=== PATIENT | male | born 1925 | race Two or more races ===

== ENCOUNTER 2016-06-14 20:01 | Inpatient (IN) | payer MEDICARE, MEDICAID ==
[2016-06-14 21:33] LABS: BASO # 0.1 K/uL (0.0-0.2); BASO % 0.5 % (0.0-2.0); EOS # 0.2 K/uL (0.0-0.7); EOS % 2.1 % (0.0-4.0); HEMATOCRIT 32.4 % (35.0-51.0); LYMPH # 2.9 K/uL (1.0-4.3); LYMPH % 30.2 % (20.0-40.0); MEAN CELL VOLUME 88.7 fl (80.0-94.0); MEAN CORPUSCULAR HEMOGLOBIN 30.3 pg (27.0-31.0); MEAN CORPUSCULAR HGB CONC 34.2 g/dL (33.0-37.0); MEAN PLATELET VOLUME 7.6 fl (7.2-11.7); MONO # 0.6 K/uL (0.0-0.8); MONO % 5.9 % (0.0-10.0); NEUT # 5.8 K/uL (1.8-7.0); NEUT % 61.3 % (50.0-75.0); NRBC % 0.1 % (0.0-0.0); RED CELL DISTRIBUTION WIDTH 13.4 % (11.5-14.5); WHITE BLOOD COUNT 9.5 K/uL (4.8-10.8)
--- NOTE | 2016-06-14 21:44 | ED PDOC ---
HPI: Altered Mental Status Time Seen by Provider: 06/14/16 20:20 Chief Complaint (Nursing): Altered Mental Status Chief Complaint (Provider): Altered Mental Status History Per: Patient History/Exam Limitations: Clinical Condition (dementia) Onset/Duration Of Symptoms: Days ("since yesterday") Onset Of Symptoms: Cannot Confirm Onset Current Symptoms Are (Timing): Still Present Description Of Symptoms: Other (agitated) Usual Baseline: Unknown Exacerbating Factor(s): Unknown Severity: Moderate Associated Symptoms: Agitated Additional Complaint(s): Donavon Adan is an 89 year old male, with a past medical history of dementia, who presents to the emergency department due to agitation with his half-way , that the patient has been experiencing since yesterday. Patient states that he does not know where he is and was put in restraints due to being violent, and increasing agitation makes him a harm to himself and ER staff.He became aggresive toward staff upon arrival in the ER HPI is limited due to patient's clinical history of dementia. PMD: Dr. Son Past Medical History Reviewed: Historical Data, Nursing Documentation, Vital Signs Vital Signs: Last Vital Signs Temp 98 F 06/14/16 20:05 Pulse 73 06/14/16 21:30 Resp 18 06/14/16 21:30 BP 139/77 06/14/16 21:30 Pulse Ox 100 06/14/16 21:30 - Medical History PMH: Dementia, GERD, HTN, Hypothyroidism - Surgical History Surgical History: No Surg Hx - Family History Family History: States: No Known Family Hx - Living Arrangements Living Arrangements: Group Home/Assist Lvng - Social History Current smoker - smoking cessation education provided: No Ex-Smoker (has not smoked in the last 12 months): No Alcohol: None Drugs: Denies - Home Medications Home Medications: Ambulatory Orders Medication Instructions Recorded Acetaminophen [Tylenol 325mg tab] 650 mg PO Q4 PRN 06/15/16 Acetaminophen [Tylenol 325mg tab] 650 mg PO Q4 PRN 06/15/16 Atorvastatin [Lipitor] 20 mg PO HS 06/15/16 Bisacodyl [Dulcolax] 10 mg NC DAILY PRN 06/15/16 Calcium Carbonate/Vitamin D3 1 tab PO DAILY 06/15/16 [Caltrate 600 + D Soft Chew Tab] Donepezil [Aricept] 10 mg PO HS 06/15/16 Guaifenesin [Pediatric Cough-Cold] 10 ml PO Q8 PRN 06/15/16 Isoniazid [Niazid] 300 mg PO DAILY 06/15/16 Levothyroxine [Synthroid] 75 mcg PO DAILY 06/15/16 Losartan Potassium [Losartan 25 mg PO DAILY 06/15/16 Potassium] Magnesium Hydroxide [Milk Of 30 ml PO HS PRN 06/15/16 Magnesia] Memantine HCl [Memantine HCl] 19 mg PO DAILY 06/15/16 - Allergies Allergies/Adverse Reactions: Allergies Allergy/AdvReac Type Severity Reaction Status Date / Time No Known Allergies Allergy Verified 06/14/16 20:05 Review of Systems Review Of Systems: ROS cannot be obtained secondary to pt's inabilty to answer questions. (ROS is limited due to patient's clinical history of dementia) Neurological: Positive for: Confusion, Altered Mental Status, Other (agitation) Physical Exam - Reviewed Nursing Documentation Reviewed: Yes Vital Signs Reviewed: Yes - Physical Exam Appears: Positive for: Non-toxic, No Acute Distress Head Exam: Positive for: ATRAUMATIC, NORMOCEPHALIC Skin: Positive for: Normal Color, Warm, Dry Cardiovascular/Chest: Positive for: Regular Rate, Rhythm. Negative for: Murmur Respiratory: Positive for: Normal Breath Sounds. Negative for: Respiratory Distress Gastrointestinal/Abdominal: Positive for: Normal Exam, Soft. Negative for: Tenderness Extremity: Positive for: Normal ROM. Negative for: Tenderness Neurologic/Psych: Positive for: Alert, Other (unable to perform full neurological exam due to pt clinical state). Negative for: Oriented - Laboratory Results Result Diagrams: 06/14/16 21:20 06/16/16 06:45 - ECG O2 Sat by Pulse Oximetry: 100 (RA) Pulse Ox Interpretation: Normal Medical Decision Making Medical Decision Makin:29 Initial Impression: Psychiatric evaluation, pending medical clearance for crisis eval. Initial Plan: * CT Head w/o Contrast * Alcohol Serum * CBC * CMP * UA * Urine Drug Screen * Urine Culture * Acetaminophen * Salicylate * Ativan 1 mg IVP * Crisis Evaluation * Restraints: Violent or Harm to Self/Others 20:29 Patient presents a danger to both himself and emergency department staff due to aggressive behavior. Will place patient into 4 point restraints and administer Ativan 1 mg IVP for relief of acute agitation. 21:39 Provider tried to remove restraints, but patient got too agitated. 22:21 Restraints were removed from the patient as pt demonstrated ability to stay calm 0050: Patient is medically cleared for psych eval. Awaiting crisis evaluation. 0440: Patient evaluated by crisis team and cleared for admission, however patient's daughter needs to come to ED and sign and she will not be here until 8 AM. Patient s/o to Dr. Alexander at 0700 pending daughter signing paperwork at 8 AM. Scribe Attestation: Documented by Earl Bhandari, acting as a scribe for Juanito Arriaza MD. Provider Scribe Attestation: All medical record entries made by the Scribe were at my direction and personally dictated by me. I have reviewed the chart and agree that the record accurately reflects my personal performance of the history, physical exam, medical decision making, and the department course for this patient. I have also personally directed, reviewed, and agree with the discharge instructions and disposition. ED OBSERVATION Date of observation admission: 06/15/16 Time of observation admission: 00:00 - Observation admission statement Patient is being placed in observation because:: crisis eval - Progress Note Progress Note: 0200: Patient resting comfortably in no distress. 0400: Patient resting comfortably in no distress. Disposition - Clinical Impression Clinical Impression: Alzheimer's dementia - Patient ED Disposition Is Patient to be Admitted: Transfer of Care - Disposition Disposition: Transfer of Care Disposition Time: 07:00 Condition: FAIR Patient Signed Over To: Eric Alexander Handoff Comments: pending daughter signing paperwork at 8 AM
[2016-06-14 21:48] LABS: ALB/GLOB RATIO 1.4 (1.0-2.1); ALCOHOL SERUM < 10 mg/dl (0-10); ALKALINE PHOSPHATASE 84 U/L (38-126); ALT/SGPT 34 U/L (21-72); AST/SGOT 40 U/L (17-59); BILIRUBIN,TOTAL 1.1 mg/dl (0.2-1.3); BLOOD UREA NITROGEN 25 mg/dl (9-20); CALCIUM 9.7 mg/dL (8.4-10.2); CARBON DIOXIDE 22 mmol/L (22-30); CHLORIDE 109 mmol/L (98-107); GFR AFRICAN-AMERICAN > 60; GLUCOSE,RANDOM 101 mg/dL (75-110); POTASSIUM 3.4 MMOL/L (3.6-5.0); SODIUM 144 mmol/l (132-148); TOTAL PROTEIN 7.1 G/DL (6.3-8.2)
--- NOTE | 2016-06-14 23:30 | CT ---
EXAM: CT Head Without Intravenous Contrast CLINICAL HISTORY: 89 years old, male; Signs and symptoms; Altered mental status/memory loss; Additional info: Agitation TECHNIQUE: Axial computed tomography images of the head/brain without intravenous contrast. This CT exam was performed using one or more of the following dose reduction techniques: automated exposure control, adjustment of the mA and/or kV according to patient size, and/or use of iterative reconstruction technique. Coronal and sagittal reformatted images were created and reviewed. COMPARISON: No relevant prior studies available. FINDINGS: Brain: There is moderate prominence of ventricles and sulci, compatible with moderate atrophy. There is moderate diminished density of the white matter bilaterally, consistent with moderate microangiopathy. There is no evidence of intracranial hemorrhage. No evidence of acute territorial infarction. No edema. Ventricles: See above. Bones/joints: Unremarkable. No acute fracture. Soft tissues: Unremarkable. Sinuses: There is mucosal thickening of both maxillary sinuses. Mild mucosal thickening of multiple ethmoid air cells. Mastoid air cells: Unremarkable as visualized. No mastoid effusion. IMPRESSION: 1. No evidence for acute intracranial abnormality or displaced calvarial fracture. 2. Additional incidental and/or chronic findings as described.
[2016-06-14 23:57] LABS: RBC URINE 3 /hpf (0-3); URINE BILIRUBIN NEGATIVE (NEGATIVE); URINE BLOOD NEGATIVE (NEGATIVE); URINE COLOR YELLOW (YELLOW); URINE GLUCOSE (UA) NEG (Normal); URINE KETONE TRACE mg/dL (NEGATIVE); URINE LEUKOCYTE ESTERASE NEG Leu/uL (Negative); URINE PROTEIN NEGATIVE (NEGATIVE); URINE UROBILINOGEN 0.2-1.0 mg/dL (0.2-1.0); WBC URINE 2 /hpf (0-5)
--- NOTE | 2016-06-15 07:09 | ED PDOC ---
- Laboratory Results Result Diagrams: 06/14/16 21:20 06/14/16 21:20 - ECG O2 Sat by Pulse Oximetry: 100 (RA) Medical Decision Making Medical Decision Making: Time: 0700 Patient signed out by Dr. Arriaza pending picker tender helper from ED by daughter at 0800 Scribe Attestation: Documented by Ana Rosa Diana acting as a scribe for Eric Alexander MD MD Scribe Attestation: All medical record entries made by the Scribe were at my direction and personally dictated by me. I have reviewed the chart and agree that the record accurately reflects my personal performance of the history, physical exam, medical decision making, and the department course for this patient. I have also personally directed, reviewed, and agree with the discharge instructions and disposition. Disposition Counseled Patient/Family Regarding: Studies Performed, Diagnosis - Clinical Impression Clinical Impression: Alzheimer's dementia - POA Present On Arrival: None - Disposition Disposition: Admitted as In-Patient Disposition Time: 10:00 Condition: FAIR
--- NOTE | 2016-06-15 09:21 | CARD ---
APPROVED REPORT EKG Measurement Heart [id number] <Conclusion> Sinus rhythm with 1st degree AV block Otherwise normal ECG
--- NOTE | 2016-06-15 11:28 | RAD ---
HISTORY: Agitation. COMPARISON: No prior. FINDINGS: LUNGS: No active pulmonary disease. PLEURA: No significant pleural effusion identified, no pneumothorax apparent. CARDIOVASCULAR: No radiographic findings to suggest acute or significant cardiovascular disease. OSSEOUS STRUCTURES: No significant abnormalities. VISUALIZED UPPER ABDOMEN: Normal. OTHER FINDINGS: None. IMPRESSION: No active disease. Concordant results with the preliminary interpretation rendered by the emergency department physician procedure.
[2016-06-15] MEDS ORDERED: Magnesium Hydroxide Susp 30 ml UD PO PRN ×2 (11:29→18:54)
[2016-06-15] MEDS ORDERED: Alum-Mag Hydrox-Simethicone Susp (30 mL) PO PRN (11:29)
[2016-06-15] MEDS ORDERED: Bismuth Subsalicylate 262 mg/15 ml Sus (240 ml) PO PRN (11:29)
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
[2016-06-15 16:55] VITALS: BMI 31.0
--- NOTE | 2016-06-15 18:41 | CP.PCM.CON ---
History of Present Illness - History of Present Illness History of Present Illness: 89 y/o male with PMH Dementia with behavioral problems, HTN , dyslpidemia , hypothyroidismm, NH resident was sent to ER for evaluation of agitation and aggressive behaviour. Medicine consult called as per protocol.Patient is demented so can not provided any history. History obtained from chart and staff. At present he appears calm in NAD . He was given 1 mg Ativan in ER for agitation NKDA;NOne PMH; Dementia witgh behavioral problems Medications;LOSARTAN, MEMANTINE, ARICEPT, IZONIAZID, ATORVASTATIN Surgery ; Unknown Family history ; unknown Social history ; NH resident ROS ; patient can not provide any ROS due to advanced dementia. There is no family member available Review of Systems - Review of Systems Systems not reviewed;Unavailable: Dementia Past Patient History - Past Social History Alcohol: None Drugs: Denies - CARDIAC Hx Cardiac Disorders: Yes Hx Hypertension: Yes - PULMONARY Hx Chronic Obstructive Pulmonary Disease (COPD): Yes Hx Tuberculosis: No - NEUROLOGICAL Hx Neurological Disorder: Yes Hx Dementia: Yes - HEENT Hx HEENT Problems: Yes Other/Comment: hard of hearing - RENAL Hx Chronic Kidney Disease: No - ENDOCRINE/METABOLIC Hx Endocrine Disorders: Yes Hx Hypothyroidism: Yes - HEMATOLOGICAL/ONCOLOGICAL Hx Blood Disorders: No Hx Cancer: No Hx Human Immunodeficiency Virus (HIV): No - INTEGUMENTARY Hx Dermatological Problems: No - MUSCULOSKELETAL/RHEUMATOLOGICAL Hx Falls: No - GASTROINTESTINAL Hx Gastroesophageal Reflux: Yes - GENITOURINARY/GYNECOLOGICAL Hx Genitourinary Disorders: No Hx Sexually Transmitted Disorders: No - PSYCHIATRIC Hx Substance Use: No - ANESTHESIA Hx Anesthesia: Yes Hx Anesthesia Reactions: No Meds Allergies/Adverse Reactions: Allergies Allergy/AdvReac Type Severity Reaction Status Date / Time No Known Allergies Allergy Verified 06/14/16 20:05 - Medications Medications: Current Medications Acetaminophen (Tylenol 325mg Tab) 650 mg PO Q4 PRN PRN Reason: Pain, moderate (4-7) Al Hydrox/Mg Hydrox/Simethicone (Maalox Plus 30 Ml) 30 ml PO Q4 PRN PRN Reason: Dyspepsia Bismuth Subsalicylate (Pepto-Bismol) 524 mg PO Q4 PRN PRN Reason: Diarrhea Divalproex Sodium (Depakote Sprinkles) 125 mg PO BID STUART Donepezil HCl (Aricept) 10 mg PO HS STUART Lorazepam (Ativan) 0.5 mg IM Q8 PRN PRN Reason: Agitation Magnesium Hydroxide (Milk Of Magnesia) 30 ml PO HS PRN PRN Reason: Constipation Memantine (Namenda) 10 mg PO DAILY STUART Quetiapine Fumarate (Seroquel) 25 mg PO Q6 PRN PRN Reason: Agitation Physical Exam - Constitutional Appears: Non-toxic, No Acute Distress, Other (demented, drowsy ) - Head Exam Head Exam: ATRAUMATIC, NORMAL INSPECTION, NORMOCEPHALIC - Eye Exam Eye Exam: EOMI, Normal appearance, PERRL Pupil Exam: NORMAL ACCOMODATION - ENT Exam ENT Exam: Normal Exam - Neck Exam Neck exam: Positive for: Normal Inspection - Respiratory Exam Respiratory Exam: Clear to Auscultation Bilateral, NORMAL BREATHING PATTERN. absent: Rales, Rhonchi, Wheezes - Cardiovascular Exam Cardiovascular Exam: REGULAR RHYTHM, RRR, +S1, +S2. absent: JVD - GI/Abdominal Exam GI & Abdominal Exam: Normal Bowel Sounds, Soft. absent: Distended, Guarding, Rebound, Tenderness - Rectal Exam Rectal Exam: Deferred - Extremities Exam Extremities exam: Positive for: normal capillary refill, normal inspection, pedal pulses present. Negative for: calf tenderness, pedal edema - Back Exam Back exam: NORMAL INSPECTION - Neurological Exam Neurological exam: CN II-XII Intact Additional comments: awake, alert not oriented demented - Psychiatric Exam Psychiatric exam: Flat Affect Additional comments: lethargic - Skin Skin Exam: Dry, Intact, Normal Color, Warm Results - Vital Signs Recent Vital Signs: Last Vital Signs Temp 97.5 F L 06/15/16 15:57 Pulse 59 L 06/15/16 15:57 Resp 19 06/15/16 15:57 BP 143/69 06/15/16 15:57 Pulse Ox 95 06/15/16 10:47 - Labs Result Diagrams: 06/14/16 21:20 06/14/16 21:20 - Imaging and Cardiology CT scan - head Additional comment: no acute pathology Chest x-ray Additional comment: no active disease Assessment & Plan - Assessment and Plan (Free Text) Assessment: 89 y/o male with PMH Dementia with behavioral problems, HTN , dyslpidemia , hypothyroidismm, NH resident was sent to ER for evaluation of agitation and aggressive behaviour. Medicine consult called as per protocol.Patient is demented so can not provided any history. History obtained from chart and staff. At present he appears calm in NAD . He was given 1 mg Ativan in ER for agitation 1.Dementia with behavioral problems Check TSH, RPR, CXR showing no active disease, UA - wnl Check with NH if any new medications ( especially Izoniazid ) were started Management as per psych 2.Hypertension controlled resume home meds 3. Dyslipidemia on statin 4. 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 Will need to verify with NH when this medication was started since some patients on Izoniazid may experience depression , aggresion and psychosis 6 DVT prophylaxis SCD lOVENOX
[2016-06-16 07:29] LABS: BLOOD UREA NITROGEN 23 mg/dl (9-20); CALCIUM 9.1 mg/dL (8.4-10.2); CARBON DIOXIDE 27 mmol/L (22-30); CHLORIDE 109 mmol/L (98-107); GFR AFRICAN-AMERICAN > 60; GLUCOSE,RANDOM 94 mg/dL (75-110); POTASSIUM 3.8 MMOL/L (3.6-5.0); SODIUM 145 mmol/l (132-148)
[2016-06-16 08:11] LABS: T4 8.85 ug/dl (5.5-11.0)
[2016-06-16 08:25] LABS: THYROID STIMULATING HORMONE 3.39 mIU/ML (0.46-4.68)
[2016-06-16] MEDS: Divalproex 125 mg Sprinkle Capsule PO SCH ×2 (08:33→16:43)
[2016-06-16] MEDS: Levothyroxine 75 MCG TAB PO SCH (08:34)
[2016-06-16] MEDS: Calcium-Vit D 500 mg-200 Units Tab UD PO SCH (08:35)
[2016-06-16] MEDS: Enoxaparin 40 mg Syringe SC SCH (08:36)
--- NOTE | 2016-06-16 09:44 | PCM.PYCHPN ---
Psychiatric Progress Note - Psychiatric Progress Note Patient seen today, length of contact: Patient evaluated, case discussed with team, chart reviewed Patient Chief Complaint: "What's up with you?" Problems Identified/Issues Discussed: Patient A + O x 1, which is likely his baseline due to dementia. He is calm/ cooperative and slept for many hours yesterday. He denies acute complaints and has not been violent/threatening or aggressive. Medication Change: No Medical Record Reviewed: Yes Mental Status Examination - Cognitive Function Orientation: Person Memory: Impaired Attention: Poor Concentration: Poor Association: Loose Fund of Knowledge: Poor Decription of patient's judgement and insights: I/J limited by dementia - Mood Mood: Neutral - Affect Affect: Broad - Speech Speech: Slurred (Mumbles at times) - Formal Thought Process Formal Thought Process: Loosening of associations Psychotic Thoughts and Behaviors: Denies AH/VH/paranoia - Suicidal Ideation Suicidal Ideation: No - Homicidal Ideation Homicidal Ideation: No Goal/Treatment Plan - Goal/Treatment Plan Need for Continued Stay: Remain at risks for inpatient hospitalization, Severe functional impairment Progress Toward Problem(s) and Goals/Treatment Plan: -Continue Depakote 125 mg PO BID -Medicine consult appreciated -Dietitian consult appreciated -Continue 1:1 for safety/ unpredictable behavior, will consider discontinuing if patient continues to improve clinically -Individual and group therapy -Activity as tolerated Estimated Date of D/C: 06/21/16 - Smoking Cessation Smoking Cessation Initiated: No Reason for not providing: Not indicated
[2016-06-17] MEDS: Divalproex 125 mg Sprinkle Capsule PO SCH ×3 (10:31→17:55)
[2016-06-17] MEDS: Levothyroxine 75 MCG TAB PO SCH (10:31)
--- NOTE | 2016-06-17 10:31 | PCM.PYCHPN ---
Psychiatric Progress Note - Psychiatric Progress Note Patient seen today, length of contact: Patient evaluated, case discussed with team, chart reviewed Patient Chief Complaint: No acute complaints Problems Identified/Issues Discussed: Patient A + O x 1, which is his baseline due to dementia. No significant events overnight. He is calm and cooperative. He does wander around the unit and has poor insight, but this is all chronic due to his chronic dementia. He denies acute complaints and has not been violent/threatening or aggressive. Medication Change: No Medical Record Reviewed: Yes Mental Status Examination - Cognitive Function Orientation: Person Memory: Impaired Attention: Poor Concentration: Poor Association: Loose Fund of Knowledge: Poor Decription of patient's judgement and insights: I/J limited by dementia - Mood Mood: Neutral - Affect Affect: Broad - Speech Speech: Slurred (Mumbles at times) - Formal Thought Process Formal Thought Process: Loosening of associations Psychotic Thoughts and Behaviors: Denies AH/VH/paranoia - Suicidal Ideation Suicidal Ideation: No - Homicidal Ideation Homicidal Ideation: No Goal/Treatment Plan - Goal/Treatment Plan Need for Continued Stay: Remain at risks for inpatient hospitalization, Severe functional impairment Progress Toward Problem(s) and Goals/Treatment Plan: -Continue Depakote 125 mg PO BID -Medicine consult appreciated -Dietitian consult appreciated -Continue 1:1 for safety/ unpredictable behavior, will consider discontinuing if patient continues to improve clinically -Individual and group therapy -Activity as tolerated Estimated Date of D/C: 06/21/16 - Smoking Cessation Smoking Cessation Initiated: No Reason for not providing: Not indicated
[2016-06-17] MEDS: Calcium-Vit D 500 mg-200 Units Tab UD PO SCH (10:32)
[2016-06-17] MEDS: Enoxaparin 40 mg Syringe SC SCH (10:32)
[2016-06-18] MEDS: Levothyroxine 75 MCG TAB PO SCH (08:37)
[2016-06-18] MEDS: Divalproex 125 mg Sprinkle Capsule PO SCH ×2 (08:39→21:39)
[2016-06-18] MEDS: Calcium-Vit D 500 mg-200 Units Tab UD PO SCH (08:40)
[2016-06-18] MEDS: Enoxaparin 40 mg Syringe SC SCH (08:51)
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
[2016-06-18] MEDS ORDERED: Divalproex 250 mg DR(BID formulation) PO SCH (17:00)
[2016-06-19] MEDS: Divalproex 125 mg Sprinkle Capsule PO SCH ×2 (08:35→16:52)
[2016-06-19] MEDS: Enoxaparin 40 mg Syringe SC SCH (08:35)
[2016-06-19] MEDS: Calcium-Vit D 500 mg-200 Units Tab UD PO SCH (08:36)
[2016-06-19] MEDS: Levothyroxine 75 MCG TAB PO SCH (08:36)
[2016-06-19] MEDS ORDERED: Divalproex 125 mg Sprinkle Capsule PO SCH (09:00)
--- NOTE | 2016-06-19 09:49 | PCM.PYCHPN ---
Psychiatric Progress Note - Psychiatric Progress Note Patient seen today, length of contact: Patient evaluated, case discussed with team, chart reviewed Patient Chief Complaint: No acute complaints Problems Identified/Issues Discussed: No significant events overnight. Patient was calmer in the night, but does wander around when he is awake and needs redirection. He has poor insight and is only oriented to self, but this is all chronic due to his chronic dementia. Medication Change: No Medical Record Reviewed: Yes Mental Status Examination - Cognitive Function Orientation: Person Memory: Impaired Attention: Poor Concentration: Poor Association: Loose Fund of Knowledge: Poor Decription of patient's judgement and insights: I/J limited by dementia - Mood Mood: Neutral - Affect Affect: Broad - Speech Speech: Slurred (Mumbles at times) - Formal Thought Process Formal Thought Process: Loosening of associations Psychotic Thoughts and Behaviors: Denies AH/VH/paranoia - Suicidal Ideation Suicidal Ideation: No - Homicidal Ideation Homicidal Ideation: No Goal/Treatment Plan - Goal/Treatment Plan Need for Continued Stay: Remain at risks for inpatient hospitalization, Severe functional impairment Progress Toward Problem(s) and Goals/Treatment Plan: -Continue Depakote to 250 mg PO BID -Medicine consult appreciated -Dietitian consult appreciated -Continue 1:1 for safety/ unpredictable behavior, will consider discontinuing if patient continues to improve clinically -Individual and group therapy -Activity as tolerated Estimated Date of D/C: 06/23/16
[2016-06-20] MEDS: Divalproex 125 mg Sprinkle Capsule PO SCH ×2 (12:18→17:30)
[2016-06-20] MEDS: Levothyroxine 75 MCG TAB PO SCH (12:20)
[2016-06-20] MEDS: Calcium-Vit D 500 mg-200 Units Tab UD PO SCH (12:20)
--- NOTE | 2016-06-20 15:25 | PCM.PYCHPN ---
Psychiatric Progress Note - Psychiatric Progress Note Patient seen today, length of contact: Patient evaluated, case discussed with team, chart reviewed Patient Chief Complaint: No acute complaints Problems Identified/Issues Discussed: No significant events overnight. Patient has been sleeping off and on during the day. He has been calm, without aggression or agitation. He has poor insight and is only oriented to self, but this is all chronic due to his chronic dementia. Medication Change: No Medical Record Reviewed: Yes Mental Status Examination - Cognitive Function Orientation: Person Memory: Impaired Attention: Poor Concentration: Poor Association: Loose Fund of Knowledge: Poor Decription of patient's judgement and insights: I/J limited by dementia - Mood Mood: Neutral - Affect Affect: Broad - Speech Speech: Slurred (Mumbles at times) - Formal Thought Process Formal Thought Process: Loosening of associations Psychotic Thoughts and Behaviors: Denies AH/VH/paranoia - Suicidal Ideation Suicidal Ideation: No - Homicidal Ideation Homicidal Ideation: No Goal/Treatment Plan - Goal/Treatment Plan Need for Continued Stay: Remain at risks for inpatient hospitalization, Severe functional impairment Progress Toward Problem(s) and Goals/Treatment Plan: -Continue Depakote to 250 mg PO BID; Check VPA in the morning -Medicine consult appreciated -Dietitian consult appreciated -Continue 1:1 for safety/ unpredictable behavior, will consider discontinuing if patient continues to improve clinically -Individual and group therapy -Activity as tolerated Estimated Date of D/C: 06/23/16
[2016-06-21 02:50] VITALS: O2SAT 100
[2016-06-21] MEDS: Calcium-Vit D 500 mg-200 Units Tab UD PO SCH (09:20)
[2016-06-21] MEDS: Levothyroxine 75 MCG TAB PO SCH (09:20)
[2016-06-21] MEDS: Divalproex 125 mg Sprinkle Capsule PO SCH ×2 (09:23→17:20)
--- NOTE | 2016-06-21 10:58 | PCM.PYCHPN ---
Psychiatric Progress Note - Psychiatric Progress Note Patient seen today, length of contact: Patient evaluated, case discussed with team, chart reviewed Patient Chief Complaint: No acute complaints Problems Identified/Issues Discussed: No significant events over the weekend. Patient has been calm and cooperative for several days without any significant events. He continues to be oriented x 1 as per his baseline. No adverse effects to medications reported or noted by staff. Diagnostic Results: VPA 06/21/16- 50.8 Medication Change: No Medical Record Reviewed: Yes Mental Status Examination - Cognitive Function Orientation: Person Memory: Impaired Attention: Poor Concentration: Poor Association: Loose Fund of Knowledge: Poor Decription of patient's judgement and insights: I/J limited by dementia - Mood Mood: Neutral - Affect Affect: Broad - Speech Speech: Slurred (Mumbles at times) - Formal Thought Process Formal Thought Process: Loosening of associations Psychotic Thoughts and Behaviors: Denies AH/VH/paranoia - Suicidal Ideation Suicidal Ideation: No - Homicidal Ideation Homicidal Ideation: No Goal/Treatment Plan - Goal/Treatment Plan Need for Continued Stay: Severe functional impairment Progress Toward Problem(s) and Goals/Treatment Plan: -Continue Depakote to 250 mg PO BID; VPA 06/21/16- 50.8 -Medicine consult appreciated -Dietitian consult appreciated -Discontinue 1:1 -Individual and group therapy -Activity as tolerated Estimated Date of D/C: 06/23/16 - Smoking Cessation Smoking Cessation Initiated: No Reason for not providing: Not indicated
[2016-06-22] MEDS: Levothyroxine 75 MCG TAB PO SCH (06:38)
[2016-06-22] MEDS: Divalproex 125 mg Sprinkle Capsule PO SCH ×2 (08:09→17:08)
[2016-06-22] MEDS: Calcium-Vit D 500 mg-200 Units Tab UD PO SCH (08:09)
--- NOTE | 2016-06-22 09:42 | PCM.PYCHPN ---
Psychiatric Progress Note - Psychiatric Progress Note Patient seen today, length of contact: Patient evaluated, case discussed with team, chart reviewed Patient Chief Complaint: No acute complaints Problems Identified/Issues Discussed: No significant events over the weekend or overnight. Patient has been calm and cooperative for several days without any significant events. He continues to be oriented x 1 as per his baseline. No adverse effects to medications reported or noted by staff. Diagnostic Results: VPA 06/21/16- 50.8 Medication Change: No Medical Record Reviewed: Yes Mental Status Examination - Cognitive Function Orientation: Person Memory: Impaired Attention: Poor Concentration: Poor Association: Loose Fund of Knowledge: Poor Decription of patient's judgement and insights: I/J limited by dementia - Mood Mood: Neutral - Affect Affect: Broad - Speech Speech: Slurred (Mumbles at times) - Formal Thought Process Formal Thought Process: Loosening of associations Psychotic Thoughts and Behaviors: Denies AH/VH/paranoia - Suicidal Ideation Suicidal Ideation: No - Homicidal Ideation Homicidal Ideation: No Goal/Treatment Plan - Goal/Treatment Plan Progress Toward Problem(s) and Goals/Treatment Plan: 89 yo male admitted for dementia w/ behavioral disturbances, now psychiatrically stable for referral to a correction. -Continue Depakote 250 mg PO BID; VPA 06/21/16- 50.8 -Medicine consult appreciated -Dietitian consult appreciated -Individual and group therapy -Activity as tolerated -Disposition planning Estimated Date of D/C: 06/24/16 - Smoking Cessation Smoking Cessation Initiated: No Reason for not providing: Not indicated
[2016-06-23] MEDS: Levothyroxine 75 MCG TAB PO SCH (06:15)
[2016-06-23] MEDS: Divalproex 125 mg Sprinkle Capsule PO SCH ×2 (08:46→16:42)
[2016-06-23] MEDS: Calcium-Vit D 500 mg-200 Units Tab UD PO SCH (08:47)
--- NOTE | 2016-06-23 09:34 | PCM.PYCHPN ---
Psychiatric Progress Note - Psychiatric Progress Note Patient seen today, length of contact: Patient evaluated, case discussed with team, chart reviewed Patient Chief Complaint: No acute complaints Problems Identified/Issues Discussed: No significant events overnight. Patient has been calm and cooperative for several days without any significant events. He continues to be oriented x 1 as per his baseline. No adverse effects to medications reported or noted by staff. Diagnostic Results: VPA 06/21/16- 50.8 Medication Change: No Medical Record Reviewed: Yes Mental Status Examination - Cognitive Function Orientation: Person Memory: Impaired Attention: Poor Concentration: Poor Association: Loose Fund of Knowledge: Poor Decription of patient's judgement and insights: I/J limited by dementia - Mood Mood: Neutral - Affect Affect: Broad - Speech Speech: Slurred (Mumbles at times) - Formal Thought Process Formal Thought Process: Loosening of associations Psychotic Thoughts and Behaviors: Denies AH/VH/paranoia - Suicidal Ideation Suicidal Ideation: No - Homicidal Ideation Homicidal Ideation: No Goal/Treatment Plan - Goal/Treatment Plan Need for Continued Stay: Severe functional impairment Progress Toward Problem(s) and Goals/Treatment Plan: 89 yo male admitted for dementia w/ behavioral disturbances, now psychiatrically stable for referral to a fdc. -Continue Depakote 250 mg PO BID; VPA 06/21/16- 50.8 -Medicine consult appreciated -Dietitian consult appreciated -Individual and group therapy -Activity as tolerated -Disposition planning Estimated Date of D/C: 06/25/16
[2016-06-24] MEDS: Levothyroxine 75 MCG TAB PO SCH (06:30)
[2016-06-24] MEDS ORDERED: Levothyroxine 75 MCG TAB PO ONE (06:30)
[2016-06-24] MEDS: Calcium-Vit D 500 mg-200 Units Tab UD PO SCH (09:00)
[2016-06-24] MEDS ORDERED: Divalproex 125 mg Sprinkle Capsule PO ONE ×2 (09:00→17:00)
[2016-06-24] MEDS ORDERED: Calcium-Vit D 500 mg-200 Units Tab UD PO ONE (09:00)
[2016-06-24] MEDS: Divalproex 125 mg Sprinkle Capsule PO SCH ×2 (09:00→17:00)
[2016-06-25] MEDS: Levothyroxine 75 MCG TAB PO SCH ×2 (09:22→09:23)
[2016-06-25] MEDS: Divalproex 125 mg Sprinkle Capsule PO SCH ×2 (09:27→17:40)
[2016-06-25] MEDS: Calcium-Vit D 500 mg-200 Units Tab UD PO SCH (09:30)
--- NOTE | 2016-06-25 09:32 | PCM.PYCHPN ---
Psychiatric Progress Note - Psychiatric Progress Note Patient seen today, length of contact: Patient evaluated, case discussed with team, chart reviewed Patient Chief Complaint: No acute complaints Problems Identified/Issues Discussed: *Progress note from 06/24/16 written in the paper chart because EMR was down. No significant events overnight. Patient has been calm and cooperative for a week without any significant events. He continues to be oriented x 1 as per his baseline. No adverse effects to medications reported or noted by staff. Diagnostic Results: VPA 06/21/16- 50.8 Medication Change: No Medical Record Reviewed: Yes Mental Status Examination - Cognitive Function Orientation: Person Memory: Impaired Attention: Poor Concentration: Poor Association: Loose Fund of Knowledge: Poor Decription of patient's judgement and insights: I/J limited by dementia - Mood Mood: Neutral - Affect Affect: Broad - Speech Speech: Appropriate, Slurred (Mumbles at times) - Formal Thought Process Formal Thought Process: Loosening of associations Psychotic Thoughts and Behaviors: Denies AH/VH/paranoia - Suicidal Ideation Suicidal Ideation: No - Homicidal Ideation Homicidal Ideation: No Goal/Treatment Plan - Goal/Treatment Plan Need for Continued Stay: Severe functional impairment Progress Toward Problem(s) and Goals/Treatment Plan: 89 yo male admitted for dementia w/ behavioral disturbances, now psychiatrically stable for referral to a correction. -Continue Depakote 250 mg PO BID; VPA 06/21/16- 50.8 -Medicine consult appreciated -Dietitian consult appreciated -Individual and group therapy -Activity as tolerated -Disposition planning, awaiting correction placement Estimated Date of D/C: 06/29/16
[2016-06-26] MEDS: Levothyroxine 75 MCG TAB PO SCH (06:32)
[2016-06-26] MEDS: Divalproex 125 mg Sprinkle Capsule PO SCH ×2 (08:33→16:11)
[2016-06-26] MEDS: Calcium-Vit D 500 mg-200 Units Tab UD PO SCH (08:35)
--- NOTE | 2016-06-26 13:23 | PCM.PYCHPN ---
Psychiatric Progress Note - Psychiatric Progress Note Patient seen today, length of contact: discussed with RN Patient Chief Complaint: no complaints Problems Identified/Issues Discussed: pt without any significant behavioral events. no evidence of medication side effects. Medication Change: No Medical Record Reviewed: Yes Mental Status Examination - Cognitive Function Orientation: Person Memory: Impaired Attention: Poor Concentration: Poor Association: Loose Fund of Knowledge: Poor Decription of patient's judgement and insights: poor - Mood Mood: Neutral - Affect Affect: Broad - Speech Speech: Appropriate, Slurred (Mumbles at times) - Formal Thought Process Formal Thought Process: Loosening of associations - Suicidal Ideation Suicidal Ideation: No - Homicidal Ideation Homicidal Ideation: No Goal/Treatment Plan - Goal/Treatment Plan Need for Continued Stay: Severe functional impairment Progress Toward Problem(s) and Goals/Treatment Plan: alzheimers disease continue current treatment per primary team Estimated Date of D/C: 06/29/16
[2016-06-27] MEDS: Levothyroxine 75 MCG TAB PO SCH (06:10)
[2016-06-27] MEDS: Calcium-Vit D 500 mg-200 Units Tab UD PO SCH (09:50)
[2016-06-27] MEDS: Divalproex 125 mg Sprinkle Capsule PO SCH ×2 (09:51→16:29)
--- NOTE | 2016-06-27 12:47 | PCM.PYCHPN ---
Psychiatric Progress Note - Psychiatric Progress Note Patient seen today, length of contact: discussed with RN Patient Chief Complaint: no complaints Problems Identified/Issues Discussed: pt without any significant behavioral events. no evidence of medication side effects. sitting calming in hallway, cooperative. Medication Change: No Medical Record Reviewed: Yes Mental Status Examination - Cognitive Function Orientation: Person Memory: Impaired Attention: Poor Concentration: Poor Association: Loose Fund of Knowledge: Poor Decription of patient's judgement and insights: poor - Mood Mood: Neutral - Affect Affect: Broad - Speech Speech: Appropriate, Slurred (Mumbles at times) - Formal Thought Process Formal Thought Process: Loosening of associations - Suicidal Ideation Suicidal Ideation: No - Homicidal Ideation Homicidal Ideation: No Goal/Treatment Plan - Goal/Treatment Plan Need for Continued Stay: Severe functional impairment Progress Toward Problem(s) and Goals/Treatment Plan: alzheimers disease continue current treatment per primary team Estimated Date of D/C: 06/29/16
[2016-06-28] MEDS: Levothyroxine 75 MCG TAB PO SCH (06:46)
[2016-06-28] MEDS: Divalproex 125 mg Sprinkle Capsule PO SCH ×2 (10:09→16:26)
[2016-06-28] MEDS: Calcium-Vit D 500 mg-200 Units Tab UD PO SCH (10:10)
--- NOTE | 2016-06-28 10:35 | PCM.PYCHPN ---
Psychiatric Progress Note - Psychiatric Progress Note Patient seen today, length of contact: Patient evaluated, case discussed with team, chart reviewed Patient Chief Complaint: No acute complaints Problems Identified/Issues Discussed: No significant events over the weekend. Patient has been calm and cooperative for over a week without any significant events. He continues to be oriented x 1 as per his baseline. No adverse effects to medications reported or noted by staff. Diagnostic Results: VPA 06/21/16- 50.8 Medication Change: No Medical Record Reviewed: Yes Mental Status Examination - Cognitive Function Orientation: Person Memory: Impaired Attention: Poor Concentration: Poor Association: Loose Fund of Knowledge: Poor Decription of patient's judgement and insights: Poor I/J due to chronic dementia - Mood Mood: Neutral - Affect Affect: Broad - Speech Speech: Appropriate, Slurred (Mumbles at times) - Formal Thought Process Formal Thought Process: Loosening of associations Psychotic Thoughts and Behaviors: No AH/VH/paranoia - Suicidal Ideation Suicidal Ideation: No - Homicidal Ideation Homicidal Ideation: No Goal/Treatment Plan - Goal/Treatment Plan Need for Continued Stay: Severe functional impairment Progress Toward Problem(s) and Goals/Treatment Plan: 89 yo male admitted for dementia w/ behavioral disturbances, now psychiatrically stable for referral to a penitentiary. -Continue Depakote 250 mg PO BID; VPA 06/21/16- 50.8 -Medicine consult appreciated -Dietitian consult appreciated -Individual and group therapy -Activity as tolerated -Disposition planning, awaiting penitentiary placement Estimated Date of D/C: 06/29/16
[2016-06-29] MEDS: Divalproex 125 mg Sprinkle Capsule PO SCH ×2 (09:31→17:36)
[2016-06-29] MEDS: Calcium-Vit D 500 mg-200 Units Tab UD PO SCH (09:31)
--- NOTE | 2016-06-29 09:56 | PCM.PYCHPN ---
Psychiatric Progress Note - Psychiatric Progress Note Patient seen today, length of contact: Patient evaluated, case discussed with team, chart reviewed Patient Chief Complaint: No acute complaints Problems Identified/Issues Discussed: No significant events overnight. Patient has been calm and cooperative, without any significant events. He continues to be oriented x 1 as per his baseline. No adverse effects to medications reported or noted by staff. No acute mood complaints or disturbances. Diagnostic Results: VPA 06/21/16- 50.8 Medication Change: No Medical Record Reviewed: Yes Mental Status Examination - Cognitive Function Orientation: Person Memory: Impaired Attention: Poor Concentration: Poor Association: Loose Fund of Knowledge: Poor Decription of patient's judgement and insights: Poor I/J due to chronic dementia - Mood Mood: Neutral - Affect Affect: Broad - Speech Speech: Appropriate, Slurred (Mumbles at times) - Formal Thought Process Formal Thought Process: Loosening of associations Psychotic Thoughts and Behaviors: No AH/VH/paranoia - Suicidal Ideation Suicidal Ideation: No - Homicidal Ideation Homicidal Ideation: No Goal/Treatment Plan - Goal/Treatment Plan Need for Continued Stay: Severe functional impairment Progress Toward Problem(s) and Goals/Treatment Plan: 89 yo male admitted for dementia w/ behavioral disturbances, now psychiatrically stable for referral to a long-term. -Continue Depakote 250 mg PO BID; VPA 06/21/16- 50.8 -Medicine consult appreciated -Dietitian consult appreciated -Individual and group therapy -Activity as tolerated -Disposition planning, awaiting long-term placement Estimated Date of D/C: 07/05/16
[2016-06-30] MEDS: Levothyroxine 75 MCG TAB PO SCH (05:40)
[2016-06-30] MEDS: Divalproex 125 mg Sprinkle Capsule PO SCH ×2 (08:14→16:16)
[2016-06-30] MEDS: Calcium-Vit D 500 mg-200 Units Tab UD PO SCH (08:16)
--- NOTE | 2016-06-30 08:47 | PCM.PYCHPN ---
Psychiatric Progress Note - Psychiatric Progress Note Patient seen today, length of contact: Patient evaluated, case discussed with team, chart reviewed Patient Chief Complaint: No acute complaints Problems Identified/Issues Discussed: No significant events overnight. Patient has been calm and cooperative, without any significant events or issues. He continues to be oriented x 1 as per his baseline. No adverse effects to medications reported or noted by staff. No acute mood complaints or disturbances. Diagnostic Results: VPA 06/21/16- 50.8 Medication Change: No Medical Record Reviewed: Yes Mental Status Examination - Cognitive Function Orientation: Person Memory: Impaired Attention: Poor Concentration: Poor Association: Loose Fund of Knowledge: Poor Decription of patient's judgement and insights: Poor I/J due to chronic dementia - Mood Mood: Neutral - Affect Affect: Broad - Speech Speech: Appropriate, Slurred (Mumbles at times) - Formal Thought Process Formal Thought Process: Loosening of associations Psychotic Thoughts and Behaviors: No AH/VH/paranoia - Suicidal Ideation Suicidal Ideation: No - Homicidal Ideation Homicidal Ideation: No Goal/Treatment Plan - Goal/Treatment Plan Need for Continued Stay: Severe functional impairment Progress Toward Problem(s) and Goals/Treatment Plan: 89 yo male admitted for dementia w/ behavioral disturbances, now psychiatrically stable for referral to a jail. -Continue Depakote 250 mg PO BID; VPA 06/21/16- 50.8 -Medicine consult appreciated -Dietitian consult appreciated -Individual and group therapy -Activity as tolerated -Disposition planning, awaiting jail placement Estimated Date of D/C: 07/05/16 - Smoking Cessation Smoking Cessation Initiated: No Reason for not providing: Not indicated
[2016-07-01 06:02] VITALS: BP 136/56; PULSE 78; RESP 18; TEMP 97.2
[2016-07-01] MEDS: Levothyroxine 75 MCG TAB PO SCH (08:45)
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
[2016-07-01] MEDS: Divalproex 125 mg Sprinkle Capsule PO SCH (08:46)
[2016-07-01] MEDS: Calcium-Vit D 500 mg-200 Units Tab UD PO SCH (08:46)
== END 2016-07-01 12:00 | DRG 57 ==
LOC: H.ER 20:01 → H.EROBSV 06-15 02:37 → H.ERHOLD 06-15 10:11 → OBSVTOIN 06-15 10:11 → H.STEP 06-15 10:51
PROVIDERS: ADMIT Psychiatry & Neurology Psychiatry; ATTEND Psychiatry & Neurology Psychiatry
PROC: GZHZZZZ Group Psychotherapy (ICD-10-PCS; principal; 2016-06-18)
PROC: GZ51ZZZ Individual Psychotherapy, Behavioral (ICD-10-PCS; 2016-06-25)
DX: G30.9 Alzheimer's disease, unspecified (principal); F02.81 Dementia in other diseases classified elsewhere, unspecified severity, with behavioral disturbance; J44.9 Chronic obstructive pulmonary disease, unspecified; Z91.83 Wandering in diseases classified elsewhere; Z66 Do not resuscitate; Z78.1 Physical restraint status; K21.9 Gastro-esophageal reflux disease without esophagitis; I10 Essential (primary) hypertension; E03.9 Hypothyroidism, unspecified; E78.5 Hyperlipidemia, unspecified; H91.90 Unspecified hearing loss, unspecified ear